=== PATIENT | male | born 2000 | race Caucasian/White ===

== ENCOUNTER 2025-04-15 10:09 | Emergency (ER) | payer BC ==
--- NOTE | 2025-04-15 10:47 | ED ---
Chest Pain HPI <CrisgeraldMaria Esther - Last Filed: 04/15/25 12:21> - General Source: patient, RN notes reviewed Mode of arrival: ambulatory Limitations: no limitations <Marta Park - Last Filed: 04/15/25 12:58> - General Chief Complaint: Chest Pain Stated Complaint: Chest Pain Time Seen by Provider: 04/15/25 10:40 - History of Present Illness Initial Comments: 24-year-old male presenting for episode of chest pain 1.5 hours ago with associated heart palpitations. States he was doing heavy lifting at work and suddenly began to experience diffuse chest pain with bilateral arm numbness, back pain, and high heart rate. States symptoms began to resolve after 10 to 15 minutes and are still mildly present currently but are much improved. States he has never had this before. He does admit to feeling anxious. Denies history of cardiac or pulmonary conditions. States he did smoke marijuana before work today. (Marta Park) - Related Data Previous Rx's Medication Instructions Recorded Azithromycin [Zithromax Z Pack] 0 tab PO DIRECTED #6 tab 04/15/25 Allergies Allergy/AdvReac Type Severity Reaction Status Date / Time No Known Allergies Allergy Verified 04/15/25 10:13 Review of Systems ROS Other: All systems not noted in ROS Statement are negative. <Maria Esther Hale - Last Filed: 04/15/25 12:21> ROS Other: All systems not noted in ROS Statement are negative. <Marta Park - Last Filed: 04/15/25 12:58> ROS Statement: Those systems with pertinent positive or pertinent negative responses have been documented in the HPI. EKG Findings - EKG Results: EKG: interpreted by ERMD (EKG reveals normal sinus rhythm with no acute ST changes. Ventricular rate 75 bpm, NV interval 149, QRS duration 91, QT/QTc 369/397) <ParkMarta - Last Filed: 04/15/25 12:58> Past Medical History Past Medical History: No Reported History History of Any Multi-Drug Resistant Organisms: None Reported Past Surgical History: No Surgical Hx Reported Smoking Status: Never smoker Past Alcohol Use History: Occasional Past Drug Use History: Marijuana <XavierMarta - Last Filed: 04/15/25 12:58> General Exam Limitations: no limitations General appearance: alert, in no apparent distress, anxious Head exam: Present: atraumatic, normocephalic, normal inspection Eye exam: Present: normal appearance, PERRL, EOMI. Absent: scleral icterus, conjunctival injection, periorbital swelling Respiratory exam: Present: normal lung sounds bilaterally. Absent: respiratory distress, wheezes, rales, rhonchi, stridor Cardiovascular Exam: Present: regular rate, normal rhythm, normal heart sounds. Absent: systolic murmur, diastolic murmur, rubs, gallop, clicks Neurological exam: Present: alert, oriented X3 Psychiatric exam: Present: normal affect, normal mood Skin exam: Present: warm, dry, intact, normal color. Absent: rash <Marta Park - Last Filed: 04/15/25 12:58> Course Vital Signs 04/15/25 10:10 Temperature 98.2 F Pulse Rate 80 Respiratory 17 Rate Blood Pressure 143/79 O2 Sat by Pulse 99 Oximetry Chest Pain MDM <Marta Park - Last Filed: 04/15/25 12:58> - MDM Was pt. sent in by a medical professional or institution (Dr. PA, CHEMICAL OPERATIONS SPECIALIST, urgent care, hospital, or half-way...) When possible be specific @ -No Did you speak to anyone other than the patient for history (EMS, parent, family, police, friend...)? What history was obtained from this source @ -No Did you review nursing and triage notes (agree or disagree)? Why? @ -I reviewed and agree with nursing and triage notes Were old charts reviewed (outside hosp., previous admission, EMS record, old EKG, old radiological studies, urgent care reports/EKG's, half-way records)? Report findings @ -No old charts were reviewed Differential Diagnosis (chest pain, altered mental status, abdominal pain women, abdominal pain men, vaginal bleeding, weakness, fever, dyspnea, syncope, headache, dizziness, GI bleed, back pain, seizure, CVA, palpatations, mental health, musculoskeletal)? @ -Differential Chest Pain: Stable Angina, Unstable Angina, STEMI, NSTEMI Aortic Dissection, Pneumothorax, Musculoskeletal, Esophageal Spasm GERD, Cholecystitis, Pancreatitis, Zoster, this is not meant to be an all-inclusive list. EKG interpreted by me (3pts min.). @ -As above X-rays interpreted by me (1pt min.). @ -Chest x-ray reveals airspace opacities possibly developing pneumonia CT interpreted by me (1pt min.). @ -None done U/S interpreted by me (1pt. min.). @ -None done What testing was considered but not performed or refused? (CT, X-rays, U/S, labs)? Why? @ -None What meds were considered but not given or refused? Why? @ -None Did you discuss the management of the patient with other professionals (professionals i.e. , PA, CHEMICAL OPERATIONS SPECIALIST, lab, RT, psych nurse, social worker palliative care, maintenance instructor, teacher, health promotion officer, therapeutic case manager)? Give summary @ -No Was smoking cessation discussed for >3mins.? @ -No Was critical care preformed (if so, how long)? @ -No Were there social determinants of health that impacted care today? How? (Homelessness, low income, unemployed, alcoholism, drug addiction, transportation, low edu. Level, literacy, decrease access to med. care, residential, rehab)? @ -No Was there de-escalation of care discussed even if they declined (Discuss DNR or withdrawal of care, Hospice)? DNR status @ -No What co-morbidities impacted this encounter? (DM, HTN, Smoking, COPD, CAD, Cancer, CVA, ARF, Chemo, Hep., AIDS, mental health diagnosis, sleep apnea, morbid obesity)? @ -None Was patient admitted / discharged? Hospital course, mention meds given and route, prescriptions, significant lab abnormalities, going to OR and other pertinent info. @ -Discharge. 24-year-old male presenting for episode of chest pain x 1.5 hours ago with associated heart palpitations. Vital signs are within acceptable limits. Patient does appear anxious. Provided with IV fluids and small dose of Ativan. EKG reveals normal sinus rhythm with no acute ST changes. Chest x-ray reveals airspace opacities possibly developing pneumonia. Lab work unremarkable. Upon reevaluation, patient reports significant improvement of symptoms. Discussed findings with patient. I highly suspect symptoms are due to anxiety however will treat with azithromycin for possible developing pneumonia on x-ray findings. Appropriate return precautions and follow-up care discussed. Case was discussed with my ED attending Dr. Polk. Undiagnosed new problem with uncertain prognosis? @ -No Drug Therapy requiring intensive monitoring for toxicity (Heparin, Nitro, Insulin, Cardizem)? @ -No Were any procedures done? @ -No Diagnosis/symptom? @ -Anxiety, pneumonia Acute, or Chronic, or Acute on Chronic? @ -Acute Uncomplicated (without systemic symptoms) or Complicated (systemic symptoms)? @ -Uncomplicated Side effects of treatment? @ -No Exacerbation, Progression, or Severe Exacerbation? @ -No Poses a threat to life or bodily function? How? (Chest pain, [place], VT, pneumonia, PE, COPD, DKA, ARF, appy, cholecystitis, CVA, Diverticulitis, Homicidal, Suicidal, threat to staff... and all critical care pts) @ -Not at this time (Marta Park) Disposition Is patient prescribed a controlled substance at d/c from ED?: No Time of Disposition: 12:24 <Maria Esther Hale - Last Filed: 04/15/25 12:21> <Marta Park - Last Filed: 04/15/25 12:58> Clinical Impression: Anxiety, Pneumonia Disposition: HOME SELF-CARE Condition: Stable Instructions (If sedation given, give patient instructions): Anxiety (ED) Additional Instructions: Take Z-liz as directed. Follow up with your PCP. Retun with new or worsening symptoms. Prescriptions: Azithromycin [Zithromax Z Pack] 0 tab PO DIRECTED #6 tab Referrals: None,Stated [Primary Care Provider] - 1-2 days Forms: Area PCPs
[2025-04-15] MEDS: LORazepam 1 MG TAB PO STA (10:55)
[2025-04-15] MEDS: SODIUM CHLORIDE 0.9% 1,000 ML IV STA (10:56)
[2025-04-15 11:07] LABS: Basophils # (A) 0.04 10*3/uL (0.00-0.10); Basophils % (A) 0.5 %; Eosinophils # (A) 0.01 10*3/uL (0.04-0.35); Eosinophils % (A) 0.1 %; HCT 41.2 % (39.6-50.0); HGB 14.4 g/dL (13.0-17.0); Lymphocytes # (A) 0.97 10*3/uL (0.90-5.00); Lymphocytes % (A) 11.5 %; MCH 28.1 pg (27.0-32.0); MCV 80.5 fL (80.0-97.0); Mean Platelet Volume 10.4 fL (9.5-12.2); Monocytes # (A) 0.45 10*3/uL (0.20-1.00); Monocytes % (A) 5.3 %; Neutrophils # (A) 6.96 10*3/uL (1.80-7.70); Neutrophils % (A) 82.4 %; Platelet Count 271 10*3/uL (140-440); RBC 5.12 10*6/uL (4.40-5.60); RDW 12.2 % (11.5-14.5); WBC 8.45 10*3/uL (4.50-10.00)
[2025-04-15 11:21] LABS: ALT 22 U/L (4-49); AST 31 U/L (17-59); African American GFR (CKD) >90 (>60 ml/min/1.73 sqM); Albumin 5.2 g/dL (3.5-5.0); Alkaline Phosphatase 68 U/L (38-126); Anion Gap 17 mmol/L; Blood Urea Nitrogen 21 mg/dL (9-20); Calcium 10.7 mg/dL (8.4-10.2); Carbon Dioxide 18 mmol/L (22-30); Chloride 102 mmol/L (98-107); Glucose 100 mg/dL (74-99); Non-African American GFR(CKD) >90 (>60 ml/min/1.73 sqM); Potassium 3.8 mmol/L (3.5-5.1); Sodium 137 mmol/L (137-145); Total Bilirubin 0.6 mg/dL (0.2-1.3); Total Protein 8.1 g/dL (6.3-8.2)
--- NOTE | 2025-04-15 11:37 | XR ---
EXAMINATION TYPE: XR chest 2V DATE OF EXAM: 04/15/2025 11:08 AM COMPARISON: Chest radiographs from 09/05/2007 CLINICAL INDICATION: Male, 24 years old with history of Chest pain, heart palpitations; [facility] TECHNIQUE: XR chest 2V Frontal and lateral views of the chest. FINDINGS: Lungs/Pleura: There is no evidence of pleural effusion, focal consolidation, or pneumothorax. Pulmonary vascularity: Unremarkable. Heart/mediastinum: Cardiomediastinal silhouette is unremarkable. Musculoskeletal: No acute osseous pathology. IMPRESSION: Airspace opacities projecting over the spine lateral view correlate for developing pneumoniae [facility], , 04/15/2025 11:34 AM
[2025-04-15 13:26] VITALS: BP 127/70; PULSE 81; RESP 19; TEMP 98.4
== END 2025-04-15 12:40 | disposition home or self-care (01) ==
LOC: EC 10:09
DX: J18.9 Pneumonia, unspecified organism (principal); F41.9 Anxiety disorder, unspecified
CPT/HCPCS: 36415; 71046; 80053; 84484; 85025; 93005; 96360; 99285